=== PATIENT | female | born 1980 | race Caucasian/White ===

== ENCOUNTER 2020-07-04 08:35 | Day surgery (SDC) | payer MEDICAID ==
[2020-06-29 13:57] LABS: BASOPHILS % (AUTO) 0.4 % (0.0-5.0); EOSINOPHILS % (AUTO) 1.6 % (0.0-8.0); HEMATOCRIT 41.2 % (36-48); LYMPHOCYTES % (AUTO) 25.8 % (21.0-51.0); MEAN CORPUSCULAR VOLUME 87.5 fL (79-99); MONOCYTES % (AUTO) 5.3 % (3.0-13.0); NEUTROPHILS % (AUTO) 66.8 % (40.0-77.0); PLATELET COUNT (AUTO) 296 K/uL (130-400); RED BLOOD CELL COUNT(AUTO) 4.71 MIL/uL (4.00-5.50); WHITE BLOOD COUNT (AUTO) 7.5 K/uL (4.8-10.8)
[2020-06-29 14:05] LABS: CREATININE 0.7 mg/dL (0.5-1.5); POTASSIUM 4.4 mmol/L (3.5-5.1)
[~2020-07-04] VITALS: Ht 167.6 cm; Wt 100.3 kg
[2020-07-04] VITALS (11 sets, daily range): BP systolic 94–110; BP diastolic 50–72
[~2020-07-04 08:35] MED LIST: SODIUM CHLORIDE 0.9% 1000ML 1,000 ML IV SCH
[2020-07-04] MEDS ORDERED: CEFAZOLIN SODIUM 1 GM VIAL ONE (09:19)
[2020-07-04] MEDS ORDERED: LACTATED RINGERS 1000ML 1,000 ML IV ONE (09:20)
[2020-07-04] MEDS: CEFAZOLIN SODIUM 1 GM VIAL IVP ONE ×2 (09:35→11:15)
[2020-07-04] MEDS ORDERED: LIDOCAINE PF 2% 5ML ABBOJECT ONE (11:06)
[2020-07-04] MEDS ORDERED: PROPOFOL 10 MG/ML 20ML VIAL IV ONE (11:06)
[2020-07-04] MEDS ORDERED: FENTANYL CITRATE PF 50 MCG/1 ML 2ML VIAL ONE (11:07)
[2020-07-04] MEDS ORDERED: MIDAZOLAM HCL 1 MG/ML 2ML VIAL ONE (11:07)
[2020-07-04] MEDS ORDERED: LIDOCAINE 1%-EPI 1:100,000 20 ML VIAL IJ ONE (11:20)
[2020-07-04] MEDS ORDERED: BUPIVACAINE/PF 0.5% 30ML VIAL ONE (11:20)
== END 2020-07-04 13:20 | disposition home or self-care (01) ==
LOC: DAH 08:35
PROVIDERS: ATTEND Student in an Organized Health Care Education/Training Program
DX: D17.1 Benign lipomatous neoplasm of skin and subcutaneous tissue of trunk (principal); Z20.822 Contact with and (suspected) exposure to COVID-19; Z98.891 History of uterine scar from previous surgery; Z98.890 Other specified postprocedural states; Z82.49 Family history of ischemic heart disease and other diseases of the circulatory system; Z83.3 Family history of diabetes mellitus; Z82.3 Family history of stroke; Z84.1 Family history of disorders of kidney and ureter; Z87.891 Personal history of nicotine dependence
CPT/HCPCS: 21931; 36415; 80048; 85025; A4215; A4221; A4222; A4223; A4452; A4600; A4663; C9803; G0168; J0690; J2001; J2250; J2704; J3010; J3490 ×2; J7120; U0003